=== PATIENT | male | born 1990 | race Caucasian/White ===

== ENCOUNTER 2018-10-10 11:35 | Emergency (ER) | payer OTHER ==
[2018-10-10] MEDS ORDERED: ACETAMINOPHEN 325 MG TABLET PO STA (12:36)
--- NOTE | 2018-10-10 12:39 | ED Physician Documentation ---
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 - Additional information Additional information: The patient is a 28-year-old active [employer] [place] male who presents with fever, chills, myalgias, headache, and mildly productive cough. His symptoms started 3 days ago. He had fever as high as 104 degrees this morning. He denies abdominal pain, vomiting or diarrhea. He denies history of similar symptoms in the past. Review of Systems Constitutional: reports: Fever, Chills, Myalgias, Fatigue Eyes: denies: Irritation Ears: denies: Tinnitus/ringing Nose: reports: Congestion Throat: reports: Sore throat Cardiac: denies: Chest pain / pressure Respiratory: reports: Cough. denies: Dyspnea GI: reports: Nausea. denies: Abdominal Pain, Vomiting, Diarrhea : denies: Dysuria Skin: denies: Rash Neurologic: reports: Headache PD PAST MEDICAL HISTORY - Past Medical History Cardiovascular: None Endocrine/Autoimmune: None - Present Medications Home Medications: Ambulatory Orders Medication Instructions Recorded Confirmed Oseltamivir [Tamiflu] 75 mg PO BID #10 capsule 10/10/18 - Allergies Allergies/Adverse Reactions: Allergies Allergy/AdvReac Type Severity Reaction Status Date / Time codeine Allergy Anaphylaxis Verified 10/10/18 11:50 PD ED PE NORMAL - Vitals Vital signs reviewed: Yes (low grade fever) - General General: Alert and oriented X 3, Well developed/nourished, Other (Appears fatigued.) - HEENT HEENT: Atraumatic, PERRL, EOMI, Ears normal, Pharynx benign - Neck Neck: Supple, no meningeal sign, No adenopathy, No JVD - Cardiac Cardiac: RRR, No murmur - Respiratory Respiratory: No respiratory distress, Clear bilaterally - Abdomen Abdomen: Soft, Non tender - Back Back: No CVA TTP - Derm Derm: No rash - Extremities Extremities: No edema, Other - Neuro Neuro: Alert and oriented X 3, No motor deficit, Normal speech Results - Vitals Vitals: Vital Signs - 24 hr 10/10/18 10/10/18 10/10/18 11:50 13:11 14:13 Temperature 38.0 C H 37.8 C H 36.6 C Heart Rate 102 H 92 93 Respiratory 16 17 12 Rate Blood Pressure 122/67 117/70 102/77 O2 Saturation 94 96 97 Oxygen O2 Source Room air - Labs Labs: Laboratory Tests 10/10/18 12:53 Influenza A (Rapid) POSITIVE H Influenza B (Rapid) Negative PD MEDICAL DECISION MAKING - ED course Complexity details: reviewed results, re-evaluated patient, considered differential, d/w patient, d/w family ED course: The patient's presentation is typical for influenza, and his nasopharyngeal swab is positive for influenza A. His presentation does not suggest meningitis or pneumonia. Treatment in the emergency department included administration of acetaminophen 650 mg orally, and Tamiflu 75 mg orally. He is being discharged with prescription for Tamiflu. I discussed with him and his the expected course of illness, symptomatic treatment and outpatient follow-up, as well as potentially worrisome signs or symptoms that should prompt reevaluation in the emergency department. Departure - Departure Disposition: 01 Home, Self Care Clinical Impression: Influenza Condition: Stable Instructions: ED Flu Follow-Up: MIKEY Pena [Provider Group] Prescriptions: Oseltamivir [Tamiflu] 75 mg PO BID #10 capsule Comments: Drink plenty of fluids. You can use Tylenol or ibuprofen as needed for fever or discomfort. Take Tamiflu twice daily as prescribed. Follow-up with your primary physician within 1-2 weeks. Call to schedule an appointment. Return to the emergency department if you develop increasing difficulty breathing, or otherwise worsening symptoms. Forms: Activity restrictions Discharge Date/Time: 10/10/18 14:43
[2018-10-10] MEDS ORDERED: OSELTAMIVIR 75 MG CAPSULE PO STA (13:45)
[2018-10-10 14:14] VITALS: BP 102/77
== END 2018-10-10 14:43 | disposition home or self-care (01) ==
LOC: ED 11:35
DX: J11.1 Influenza due to unidentified influenza virus with other respiratory manifestations (principal)
CPT/HCPCS: 87275; 87276; 99282; 99283; A9270